=== PATIENT | male | born 1970 | race Caucasian/White ===

== ENCOUNTER 2021-11-24 07:46 | Day surgery (SDC) | payer OTHER ==
[2021-11-19 12:45] LABS: BASOPHILS % (AUTO) 0.3 % (0-1); EOSINOPHILS % (AUTO) 0.5 % (0-6); LYMPHOCYTES # (AUTO) 1.6 X10'3 (1.1-4.8); LYMPHOCYTES % (AUTO) 19.4 % (21-51); MEAN CORPUSCULAR HEMOGLOBIN 29.7 PG (27.0-31.0); MEAN CORPUSCULAR HGB CONC 33.6 g/dL (33.0-36.5); MEAN CORPUSCULAR VOLUME 88.3 FL (78-98); MEAN PLATELET VOLUME 9.8 FL (7.4-10.4); MONOCYTES # (AUTO) 0.7 X10'3 (0-0.9); MONOCYTES % (AUTO) 8.3 % (2-12); NEUTROPHILS # (AUTO) 5.9 X10'3 (1.8-7.7); NEUTROPHILS % (AUTO) 71.5 % (42-75); PRE OP HEMOGLOBIN 13.8 g/dL (14.0-17.9); PRE OP PLATELET COUNT 226 X10'3 (140-440); RED BLOOD COUNT 4.64 X10'6 (4.70-6.10); RED CELL DISTRIBUTION WIDTH 13.7 % (11.5-14.5)
[2021-11-19 13:30] LABS: ALBUMIN 3.8 G/DL (3.4-5.0); ALBUMIN/GLOBULIN RATIO 1.3 (1.1-1.5); ALKALINE PHOSPHATASE 71 IU/L (46-116); BLOOD UREA NITROGEN 9 MG/DL (7-18); BUN/CREATININE RATIO 9.6 (5.4-32.0); CALCIUM 8.5 MG/DL (8.5-10.1); CHLORIDE 107 MMOL/L (99-107); CREATININE 0.94 MG/DL (0.60-1.10); PRE OP ALT 25 U/L (30-65); PRE OP ANION GAP 9 (8-16); PRE OP AST 15 U/L (10-37); PRE OP BILIRUB, TOTAL 0.3 MG/DL (0.0-1.0); PRE OP GLUCOSE 82 MG/DL (70-104); PRE OP POTASSIUM 4.4 MMOL/L (3.4-5.1); PRE OP SODIUM 144 MMOL/L (135-145); TOTAL CARBON DIOXIDE 28.3 MMOL/L (24-32); TOTAL PROTEIN 6.8 G/DL (6.4-8.2); eGFR 85 ML/MIN
[2021-11-24] VITALS (10 sets, daily range): BP systolic 122–135; BP diastolic 74–89
[~2021-11-24] VITALS: Ht 182.9 cm; Wt 77.1 kg
[~2021-11-24 07:46] MED LIST: NO HOME MEDS; cefazolin/dext.iso 2gm/50ml IV ONE; famotidine 20mg tablet PO ONE; ringers solution, lacted 1,000 ML IV SCH
[2021-11-24] MEDS ORDERED: meperidine/PF 25mg/ml syringe IV PRN ×6 (08:15)
[2021-11-24] MEDS ORDERED: ondansetron/PF 4mg/2ml inj IV PRN ×2 (08:15)
[2021-11-24] MEDS ORDERED: ringers solution, lacted 1,000 ML IV SCH ×2 (08:15)
[2021-11-24] MEDS ORDERED: proCHLORperazine 10 MG/2 ml inj IV PRN ×2 (08:15)
[2021-11-24] MEDS ORDERED: morphine 2 MG/ML inj. syringe IV PRN ×2 (08:15)
[2021-11-24] MEDS ORDERED: morphine 4 MG/ML inj SYRINge IV PRN ×2 (08:15)
[2021-11-24] MEDS ORDERED: BUPIVAcaine 0.5% inj/PF 30 ML ONE (09:04)
[2021-11-24] MEDS ORDERED: LIDOcaine 1% 30ml preserv. free vial ONE (09:04)
[2021-11-24] MEDS ORDERED: midazolam 1 mg/ML 2ml injection ONE (09:18)
[2021-11-24] MEDS ORDERED: fentaNYL /PF 50mcg/ml 5ml ampule ONE (09:18)
[2021-11-24] MEDS ORDERED: propofol inj 20 ML IV ONE (09:20)
[2021-11-24] MEDS ORDERED: LIDOcaine 2% (20mg/ml) 5ml vial ONE (09:20)
[2021-11-24] MEDS ORDERED: BUPIVAcaine 0.5% inj/PF 30 ml vial IJ ONE (10:01)
[2021-11-24] MEDS ORDERED: rocuronium 10mg/ml inj IV ONE (10:53)
--- NOTE | 2021-11-24 10:58 | NUR ---
Received from OR via [facility] IN STABLE CONDITION , accompanied by Anesthesiologist and QA AUDITOR report given by QA AUDITOR AND Anesthesiolgist. Addendum: 11/24/21 at 1110 by Angela Nathan RN Amended: Links added.
--- NOTE | 2021-11-24 12:28 | NUR ---
PATIENT DISCHARGED FROM PACU IN STABLE CONDITION AFTER WRITTEN AND VERBAL DISCHARGE INSTRUCTIONS GIVEN. PATIENT LEFT FACILITY VIA WHEELCHAIR WITH RN. Addendum: 11/24/21 at 1239 by Angela Nathan RN Amended: Links added.
== END 2021-11-24 12:28 | disposition home or self-care (01) ==
LOC: PAS 07:46
PROVIDERS: ATTEND Surgery
DX: K40.90 Unilateral inguinal hernia, without obstruction or gangrene, not specified as recurrent (principal); F12.90 Cannabis use, unspecified, uncomplicated; Z20.822 Contact with and (suspected) exposure to COVID-19; Z79.899 Other long term (current) drug therapy
CPT/HCPCS: 36415; 49650; 80053; 82948; 85025; 93005; C1781; J0690; J2250; J2704; J3010; J3490; J7030; J7120; S0020; S2900; U0003; U0005; Z7506; Z7508; Z7512; A4215; A4618